=== PATIENT | female | born 1980 | race Caucasian/White ===

== ENCOUNTER 2017-08-29 13:54 | Inpatient (IN) | payer MEDICARE ==
[2017-08-29] MEDS ORDERED: ASPIRIN 81 MG TABLET, CHEWABLE PO ONE (13:59)
[2017-08-29] MEDS ORDERED: LORAZEPAM INJ 2 MG/1 ML VIAL IV ONE (14:34)
--- NOTE | 2017-08-29 14:34 | RADIOLOGY REPORT (SQ) ---
EXAM DESCRIPTION: CHEST SINGLE VIEW COMPLETED DATE/TIME: 08/29/2017 2:26 pm REASON FOR STUDY: cp COMPARISON: None. EXAM PARAMETERS: NUMBER OF VIEWS: One view. TECHNIQUE: Single frontal radiographic view of the chest acquired. RADIATION DOSE: NA LIMITATIONS: None. FINDINGS: LUNGS AND PLEURA: No opacities, masses or pneumothorax. No pleural effusion. MEDIASTINUM AND HILAR STRUCTURES: No masses. Contour normal. HEART AND VASCULAR STRUCTURES: Heart normal in size. Normal vasculature. BONES: No acute findings. HARDWARE: Prior anterior median sternotomy and valvular replacement. OTHER: No other significant finding. IMPRESSION: NO ACUTE RADIOGRAPHIC FINDING IN THE CHEST. TECHNICAL DOCUMENTATION: JOB ID: [id number] [employer]- All Rights Reserved Reading location - IP/workstation name: [email or web address]
[2017-08-29 15:28] LABS: ABSOLUTE LYMPHOCYTES (AUTO) 1.3 10^3/uL (0.5-4.7); ABSOLUTE NEUT (AUTO) 12.4 10^3/uL (1.7-8.2); BASOPHILS % (AUTO) 0.3 % (0-2); EOSINOPHILS % (AUTO) 0.1 % (0-6); HEMATOCRIT 41.7 % (36.0-47.0); HEMOGLOBIN 13.9 g/dL (12.0-15.5); LYMPHOCYTES % (AUTO) 8.8 % (13-45); MEAN CORPUSCULAR HEMOGLOBIN 28.9 pg (27.0-33.4); MEAN CORPUSCULAR HGB CONC 33.2 g/dL (32.0-36.0); MEAN CORPUSCULAR VOLUME 87 fl (80-97); PLATELET COUNT 429 10^3/uL (150-450); SEGMENTED NEUTROPHILS % (AUTO) 83.8 % (42-78); TOTAL CELLS COUNTED % (AUTO) 100 %; WHITE BLOOD COUNT 14.7 10^3/uL (4.0-10.5)
--- NOTE | 2017-08-29 15:35 | EKG REPORT ---
SEVERITY:- ABNORMAL ECG - VENTRICULAR PREMATURE COMPLEX NONSPECIFIC INTRAVENTRICULAR CONDUCTION DELAY ST DEPRESSION, CONSIDER ISCHEMIA, DIFFUSE LDS SINUS TACHYCARDIA VERSUS SVT.BASELINE ARTIFACT REPEAT EKG. : Confirmed by: Jojo Cooper MD 29-Aug-2017 15:35:09
[2017-08-29 15:43] LABS: PARTIAL THROMBOPLASTIN TIME 113.5 SEC (23.5-35.8)
[2017-08-29 15:51] LABS: ALANINE AMINOTRANSFERASE 18 U/L (9-52); ALKALINE PHOSPHATASE 96 U/L (38-126); ANION GAP 19 (5-19); ASPARTATE AMINO TRANSFERASE 40 U/L (14-36); BILIRUBIN,DIRECT 0.4 mg/dL (0.0-0.4); BILIRUBIN,TOTAL 0.8 mg/dL (0.2-1.3); BLOOD UREA NITROGEN 14 mg/dL (7-20); CALCIUM 10.8 mg/dL (8.4-10.2); CARBON DIOXIDE 25 mmol/L (22-30); CHLORIDE 104 mmol/L (98-107); CREATINE KINASE 916 U/L (30-135); GLUCOSE 86 mg/dL (75-110); POTASSIUM 4.6 mmol/L (3.6-5.0); SODIUM 147.6 mmol/L (137-145); TOTAL PROTEIN 8.3 g/dL (6.3-8.2)
[2017-08-29 16:10] LABS: CREATINE KINASE MB 4.34 ng/mL (<4.55); TROPONIN I < 0.012 ng/mL
--- NOTE | 2017-08-29 16:18 | ER Document Report ---
ED General - General Chief Complaint: Chest Pain Stated Complaint: ALTERED MENTAL STATUS Time Seen by Provider: 08/29/17 14:26 Mode of Arrival: Medic Information source: Relative Cannot obtain history due to: Altered mental status Notes: 36-year-old female with history of CVA, OH, hemiplegia, IV drug abuse presents via EMS from home after her sister who is at the bedside reports that the patient has had a change in mental status. Per the sister the patient was in a nursing facility and [place]. She states that she did not feel that the patient sylvia receiving adequate care and elected to bring her home to [place] to care for her. She states that until 3 days ago she has been otherwise well. Sister reports that the patient can usually speak and communicate although limited. She states that 3 days ago she became less verbal , appeared uncomfortable and was holding her head. Until this morning patient was still able to verbalize her wishes which were initially to not come to the emergency department. Upon arrival patient is diaphoretic, nonverbal. Patient has provided paperwork from the retirement facility in [place] which included a DNR status which was signed by the patient. - Related Data Allergies/Adverse Reactions: cyclobenzaprine [From Flexeril] Allergy (Verified 08/29/17 14:12) oxcarbazepine [From Trileptal] Allergy (Verified 08/29/17 14:12) tramadol [From Ultram] Allergy (Verified 08/29/17 14:12) Past Medical History - General Information source: Relative, Outside Facility Records Cannot obtain history due to: Altered mental status - Social History Smoking Status: Unknown if Ever Smoked Drug Abuse: Heroin Lives with: Family Family History: Reviewed & Not Pertinent Patient has suicidal ideation: No Patient has homicidal ideation: No - Past Medical History Cardiac Medical History: Reports: Hx Congestive Heart Failure, Hx Heart Attack Pulmonary Medical History: Reports: Hx COPD Renal/ Medical History: Denies: Hx Peritoneal Dialysis GI Medical History: Reports: Hx Gastroesophageal Reflux Disease Psychiatric Medical History: Reports: Hx Depression Past Surgical History: Reports: Hx Cardiac Surgery Review of Systems - Review of Systems -: Yes ROS unobtainable due to patient's medical condition Physical Exam - Vital signs Vitals: Resp Pulse Ox 24 H 96 08/29/17 14:09 08/29/17 14:09 - Notes Notes: PHYSICAL EXAMINATION: GENERAL: Diaphoretic, ill-appearing, nonverbal HEAD: Atraumatic, normocephalic. EYES: Bilateral dilated pupils with fixed downward gaze. ENT: Nares patent, oropharynx clear without exudates. Moist mucous membranes. NECK: Normal range of motion, supple without lymphadenopathy LUNGS: Breath sounds clear to auscultation bilaterally and equal. No wheezes rales or rhonchi. HEART: Tachycardic, no murmurs ABDOMEN: Soft, nontender, nondistended abdomen. No guarding, no rebound. No masses appreciated. Female : deferred Musculoskeletal: Left upper extremity and left lower extremity contractures NEUROLOGICAL: Nonverbal, GCS-5 SKIN: Diaphoretic. Surgical scar of chest clean dry and intact Course - Re-evaluation Re-evalutation: Laboratory 08/29/17 08/29/17 08/29/17 14:58 14:58 14:58 WBC 14.7 H RBC 4.80 Hgb 13.9 Hct 41.7 MCV 87 MCH 28.9 MCHC 33.2 RDW 14.0 Plt Count 429 Seg Neutrophils % 83.8 H Lymphocytes % 8.8 L Monocytes % 7.0 Eosinophils % 0.1 Basophils % 0.3 Absolute Neutrophils 12.4 H Absolute Lymphocytes 1.3 Absolute Monocytes 1.0 Absolute Eosinophils 0.0 Absolute Basophils 0.0 PT INR APTT Sodium 147.6 H Potassium 4.6 Chloride 104 Carbon Dioxide 25 Anion Gap 19 BUN 14 Creatinine 0.59 Est GFR ( Amer) > 60 Est GFR (Non-Af Amer) > 60 Glucose 86 Calcium 10.8 H Total Bilirubin 0.8 Direct Bilirubin 0.4 Neonat Total Bilirubin Not Reportable Neonat Direct Bilirubin Not Reportable Neonat Indirect Bili Not Reportable AST 40 H ALT 18 Alkaline Phosphatase 96 Creatine Kinase 916 H CK-MB (CK-2) 4.34 Troponin I < 0.012 Total Protein 8.3 H Albumin 5.0 08/29/17 14:58 WBC RBC Hgb Hct MCV MCH MCHC RDW Plt Count Seg Neutrophils % Lymphocytes % Monocytes % Eosinophils % Basophils % Absolute Neutrophils Absolute Lymphocytes Absolute Monocytes Absolute Eosinophils Absolute Basophils PT 66.9 H* INR 7.49 H* APTT 113.5 H Sodium Potassium Chloride Carbon Dioxide Anion Gap BUN Creatinine Est GFR ( Amer) Est GFR (Non-Af Amer) Glucose Calcium Total Bilirubin Direct Bilirubin Neonat Total Bilirubin Neonat Direct Bilirubin Neonat Indirect Bili AST ALT Alkaline Phosphatase Creatine Kinase CK-MB (CK-2) Troponin I Total Protein Albumin Chest X-Ray 08/29/17 13:59 IMPRESSION: NO ACUTE RADIOGRAPHIC FINDING IN THE CHEST. Head CT 08/29/17 14:36 IMPRESSION: Diffuse bilateral hemispheric subdural acute hemorrhages, acute falx and tentorial subdural hemorrhage, acute right posterior fossa subdural hemorrhage. Although there is no midline shift, there is mass effect, with effacement of basilar cisterns and mild inferior protrusion of the cerebellar tonsils through the foramen magnum. EVIDENCE OF ACUTE STROKE: NO. 36-year-old female with history of CVA, OH, hemiplegia, IV drug abuse presents via EMS from home after her sister who is at the bedside reports that the patient has had a change in mental status. Per the sister the patient was in a nursing facility and [place]. She states that she did not feel that the patient sylvia receiving adequate care and elected to bring her home to [place] to care for her. She states that until 3 days ago she has been otherwise well. Sister reports that the patient can usually speak and communicate although limited. She states that 3 days ago she became less verbal , appeared uncomfortable and was holding her head. Until this morning patient was still able to verbalize her wishes which were initially to not come to the emergency department. Upon arrival patient is diaphoretic, nonverbal. Patient has provided paperwork from the retirement facility in [place] which included a DNR status which was signed by the patient upon arrival vitals were reviewed. Upon arrival vital signs reviewed. Patient is markedly tachycardic with a heart rate of 150. She is diaphoretic, unresponsive. Patient was given morphine and Ativan and blood pressure normalized and diaphoresis resolved. CT of the head was significant for diffuse bilateral acute subdural hemorrhages with mass-effect. Patient's INR is 7.49. IV vitamin K was administered. 08/29/17 17:11 I spoke to David CANDELARIO for Dr. Crane at [facility] regarding the patient, her CT findings and her DNR status. No surgical recommendations at this time. Suggest comfort care. I did speak to the sister who is at the bedside who provided us with the patient's DNR and made her aware that the patient is not a surgical candidate at this time. Patient sister is in agreement. She states that she recently talked to her sister regarding her DNR and this was the patient's wishes just recently. Spoke to our hospitalist who agrees to admission, for comfort care. 08/30/17 00:49 08/30/17 00:50 - Vital Signs Vital signs: Temp Pulse Resp BP Pulse Ox 23 H 122/75 95 08/29/17 19:01 08/29/17 19:01 08/29/17 18:01 - Laboratory Result Diagrams: 08/29/17 14:58 08/29/17 14:58 Laboratory results interpreted by me: 08/29/17 08/29/17 08/29/17 14:58 14:58 14:58 WBC 14.7 H Seg Neutrophils % 83.8 H Lymphocytes % 8.8 L Absolute Neutrophils 12.4 H PT 66.9 H* INR 7.49 H* APTT 113.5 H Sodium 147.6 H Calcium 10.8 H AST 40 H Creatine Kinase 916 H Total Protein 8.3 H - Diagnostic Test Radiology reviewed: Image reviewed, Reports reviewed Critical Care Note - Critical Care Note Total time excluding time spent on procedures (mins): 45 - minutes of critical care time spent in direct contact evaluating and reevaluating the patient, treating symptoms, reviewing labs and studies and speaking with family and consultants excluding any procedures Discharge - Discharge Clinical Impression: Subdural bleeding Condition: Critical Disposition: ADMITTED INPATIENT Admitting Provider: Hospitalist Unit Admitted: Medical Floor
--- NOTE | 2017-08-29 16:33 | RADIOLOGY REPORT (SQ) ---
EXAM DESCRIPTION: CT HEAD WITHOUT COMPLETED DATE/TIME: 08/29/2017 4:17 pm REASON FOR STUDY: ams COMPARISON: None. TECHNIQUE: Axial images acquired through the brain without intravenous contrast. Images reviewed wi th bone, brain and subdural windows. Additional sagittal and coronal reconstructions were generated. Images stored on PACS. All CT scanners at this facility use dose modulation, iterative reconstruction, and/or weight based d osing when appropriate to reduce radiation dose to as low as reasonably achievable (ALARA). [facility]: Dose Right [facility]: CareDose [facility]: Dose Right [facility]: Teradose 4D [facility]: [employer] Technologies RADIATION DOSE: CT Rad equipment meets quality standard of care and radiation dose reduction techniq ues were employed. CTDIvol: 53.2 mGy. DLP: 1981 mGy-cm. mGy. LIMITATIONS: Motion artifact, patient scanned twice FINDINGS: Acute subdural hemorrhages are present diffusely. A right-sided hemispheric acute subdural hemorrhage is present over the frontal parietal temporal and occipital regions, 11 mm in greatest thickness high over the frontal parietal convexity. A left-sided hemispheric acute subdural hemorrhage is present over the frontal parietal temporal and occipital regions, 13 to 14 mm in greatest thickness over the left frontoparietal convexity. There is an acute subdural hemorrhage along the falx high over the convexities measuring 4 mm in thic kness. Acute subdural hemorrhage is present along the tentorium, right tentorial hemorrhage is 4 mm in thick ness, left is 9 mm in thickness. Subdural hemorrhage is also seen in the posterior fossa on the right, posterolaterally. Hemorrhage m easures 12 mm in thickness on the coronal reconstructions. Although there is no midline shift, there is significant mass effect, with effacement of the basilar cisterns around the brainstem, and inferior protrusion of the cerebellar tonsils through the foramen magnum. No hydrocephalus. No gross CT evidence of acute parenchymal large territory ischemic change or parenchymal/intraventric ular hemorrhage. Calvarium, paranasal sinuses, mastoid air cells unremarkable. Orbits unremarkable. This report was discussed with Dr. Woods, 1610 hours 08/29/2017 as a critical result. IMPRESSION: Diffuse bilateral hemispheric subdural acute hemorrhages, acute falx and tentorial subdu ral hemorrhage, acute right posterior fossa subdural hemorrhage. Although there is no midline shift, there is mass effect, with effacement of basilar cisterns and mil d inferior protrusion of the cerebellar tonsils through the foramen magnum. EVIDENCE OF ACUTE STROKE: NO. COMMENT: Pertinent findings on the imaging study reported as a CRITICAL RESULT to LUIS ALFREDO Christianson t16:10 on 08/29/2017. Category of Critical Result: Acute intracranial hemorrhage with mass effect Quality ID # [id number]: Final reports with documentation of one or more dose reduction techniques (e.g., Au tomated exposure control, adjustment of the mA and/or kV according to patient size, use of iterative reconstruction technique) TECHNICAL DOCUMENTATION: JOB ID: [id number] [employer]- All Rights Reserved Reading location - IP/workstation name: [email or web address]
[2017-08-29 16:35] LABS: INTERNATIONAL RATION (INR) 7.49
[2017-08-29 16:36] LABS: PROTHROMBIN TIME 66.9 SEC (11.4-15.4)
[2017-08-29] MEDS ORDERED: PHYTONADIONE INJ 10 MG/1 ML AMPULE IV ONE (17:54)
[2017-08-29] MEDS ORDERED: PROMETHAZINE HCL 25 MG SUPP.RECT PR PRN (18:05)
[2017-08-29] MEDS ORDERED: DEXTROSE 40% GEL 15 GM TUBE PO PRN ×2 (18:05)
[2017-08-29] MEDS ORDERED: GLUCAGON,HUMAN RECOMB 1 MG INJ SUBCUT PRN (18:05)
[2017-08-29] MEDS ORDERED: DEXTROSE 50%-WATER 25 GM/50 ML DISP.SYRIN IV PRN ×2 (18:05)
[2017-08-29] MEDS ORDERED: ACETAMINOPHEN 650 MG SUPP.RECT PR PRN (18:05)
[2017-08-29] MEDS ORDERED: ONDANSETRON HCL INJ/PF 4 MG/2 ML SDV IV PRN (18:05)
[2017-08-29] MEDS ORDERED: FENTANYL CITRATE INJ/PF 100 MCG/2 ML AMPUL IV PRN (18:11)
[2017-08-29] MEDS ORDERED: SCOPOLAMINE HYDROBROMIDE 1.5 MG PATCH.TD72 TD ONE (19:00)
--- NOTE | 2017-08-29 19:29 | PDOC H&P ---
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 Patient was residing in a [place] until recently. Her sister at the bedside felt that she was not receiving adequate care there and elected to bring her home, here in [place]. Sister states that Tuesday night she was no feeling well, and was not eatting her food. At a baseline she had limited verbal ability and was highly dependent on outside care. On Tuesday night patient became unconsious and has not regained consciousness. She displays some reactive motor capability in her right upper extremity. Has bilateral dilated pupils with fixed downward gaze. Her CT head shows an acute 13mm subdural hematoma without current midline shifting. Her INR was 7.49. Sister at the bedside does not describe any recent falls or head trauma. ER initially discussed transfer to [facility] for subdural hematoma, but they recommended against intervention and recommended comfort care. Family at the bedside agreed to comfort care. Patient will be admitted to medicine for comfort care support. Past Medical History Cardiac Medical History: Reports: Congestive Heart Failure, Myocardial Infarction Pulmonary Medical History: Reports: Chronic Obstructive Pulmonary Disease (COPD) Neurological Medical History: Reports: Ischemic CVA GI Medical History: Reports: Gastroesophageal Reflux Disease Psychiatric Medical History: Reports: Depression Hematology History Note: VTE history Social History Smoking Status: Current Every Day Smoker Cigarettes Packs Per Day: 2 - smoking since age 10 Frequency of Alcohol Use: None Amount of Alcoholic Beverages Per Day: unknown historic alcohol amount, described as heavy drinker prior to stroke Hx Recreational Drug Use: Yes - hx of Heroin and pill opiates described Drugs: Heroin Hx Prescription Drug Abuse: Yes Family History Family History: CAD Family History: Father described with having Cancer secondary to [place]. Mother had heart disease. Parental Family History Reviewed: Yes Children Family History Reviewed: No Sibling(s) Family History Reviewed.: No Medication/Allergy Allergies/Adverse Reactions: cyclobenzaprine [From Flexeril] Allergy (Verified 08/29/17 14:12) oxcarbazepine [From Trileptal] Allergy (Verified 08/29/17 14:12) tramadol [From Ultram] Allergy (Verified 08/29/17 14:12) Review of Systems Review of Systems: Unable to obtain ROS from patient due to her altered mental status Physical Exam Vital Signs: Temp Pulse Resp BP Pulse Ox 17 119/87 H 95 08/29/17 18:01 08/29/17 18:01 08/29/17 18:01 General appearance: PRESENT: severe distress, other - no meaningful responsiveness. Head exam: PRESENT: atraumatic, normocephalic Eye exam: PRESENT: other - bilateral dialated pupils with downward gaze, not responsive to light on exam. Ear exam: PRESENT: normal external ear exam. ABSENT: bleeding Mouth exam: PRESENT: moist, neck supple Throat exam: ABSENT: post pharyngeal erythema, tonsillar exudate Neck exam: PRESENT: full ROM. ABSENT: JVD, thyromegaly Respiratory exam: ABSENT: accessory muscle use, rales, rhonchi, wheezes Cardiovascular exam: PRESENT: RRR, +S1, +S2 Pulses: PRESENT: normal radial pulses, normal dorsalis pedis pul Vascular exam: PRESENT: normal capillary refill. ABSENT: pallor GI/Abdominal exam: PRESENT: normal bowel sounds, soft. ABSENT: rigid Extremities exam: ABSENT: calf tenderness, joint swelling Musculoskeletal exam: PRESENT: full ROM. ABSENT: deformity Neurological exam: PRESENT: altered. ABSENT: CN II-XII grossly intact Psychiatric exam: PRESENT: other - patient has no meaningful responses. ABSENT : agitated, anxious Focused psych exam: ABSENT: catatonic, paranoid Skin exam: PRESENT: normal color. ABSENT: dry, mottled, warm Results Impressions: Chest X-Ray 08/29/17 13:59 IMPRESSION: NO ACUTE RADIOGRAPHIC FINDING IN THE CHEST. Head CT 08/29/17 14:36 IMPRESSION: Diffuse bilateral hemispheric subdural acute hemorrhages, acute falx and tentorial subdural hemorrhage, acute right posterior fossa subdural hemorrhage. Although there is no midline shift, there is mass effect, with effacement of basilar cisterns and mild inferior protrusion of the cerebellar tonsils through the foramen magnum. EVIDENCE OF ACUTE STROKE: NO. Assessment & Plan - Diagnosis (1) Need for comfort care Is this a current diagnosis for this admission?: Yes Plan: sister at the bedside validates her DNR status, which was also confirmed on records obtained from the [place]. Giving scopolamine patch, and prn Fentanyl and prn Dilaudid for comfort. Will supply supportive comfort care for this patient. prn anti-emetics. Discharge planning consulted for possible Hospice. (2) Subdural bleeding Is this a current diagnosis for this admission?: Yes Plan: Acute subdural hematoma on CT head, in setting of hemiplegia and bed bound status. Jass Sandy was contacted and declined any intervention in this setting and recommended comfort care. Family at bedside agreed to comfort care. (3) History of CVA (cerebrovascular accident) Is this a current diagnosis for this admission?: Yes Plan: history of CVA with left sided hemiplegia. lower extemity contracture and left upper extremity contracture. (4) Supratherapeutic INR Is this a current diagnosis for this admission?: Yes Plan: Giving 10mg IV vitamin K in ED. INR was approx 7.5. Will monitor INR recovery. - Inpatient Certification Based on my medical assessment, after consideration of the patient's comorbidities, presenting symptoms, or acuity I expect that the services needed warrant INPATIENT care.: Yes Medical Necessity: Significant Comorbidiites Make Outpatient Treatment Too Risky - Plan Summary Plan Summary: comfort care desired by family members
[2017-08-30] MEDS: HYDROMORPHONE HCL INJ/PF 2 MG/ML AMPULE IV PRN ×2 (01:00→09:23)
[2017-08-30 06:40] LABS: HEMATOCRIT 36.8 % (36.0-47.0); HEMOGLOBIN 12.5 g/dL (12.0-15.5); MEAN CORPUSCULAR HEMOGLOBIN 29.5 pg (27.0-33.4); MEAN CORPUSCULAR HGB CONC 34.1 g/dL (32.0-36.0); MEAN CORPUSCULAR VOLUME 87 fl (80-97); PLATELET COUNT 292 10^3/uL (150-450); RED BLOOD COUNT 4.25 10^6/uL (3.72-5.28); RED CELL DISTRIBUTION WIDTH 14.1 % (11.5-14.0); WHITE BLOOD COUNT 7.9 10^3/uL (4.0-10.5)
[2017-08-30 07:13] LABS: ALBUMIN 4.4 g/dL (3.5-5.0); ANION GAP 15 (5-19); BLOOD UREA NITROGEN 16 mg/dL (7-20); CALCIUM 9.7 mg/dL (8.4-10.2); CARBON DIOXIDE 23 mmol/L (22-30); CHLORIDE 107 mmol/L (98-107); GLUCOSE 60 mg/dL (75-110); PHOSPHORUS 4.5 mg/dL (2.5-4.5); SODIUM 145.1 mmol/L (137-145)
[2017-08-30 07:19] LABS: INTERNATIONAL RATION (INR) 1.18
[2017-08-30 07:21] LABS: PROTHROMBIN TIME 15.7 SEC (11.4-15.4)
--- NOTE | 2017-08-30 10:36 | Physician Advisory Note ---
Physician Advisor ProgressNote .: Pursuant to the plan for [facility], I have reviewed the medical record for this patient. Physician Advisor Statement: Please consider documenting, if you agree: 1. "Brain compression" from subdural bleed 2. "COMA" (w/GCS total 5 on arrival) from same 3. "Acute hypernatremia due to " (dehydration, from progressive metabolic encephalopathy from subdural hematoma/brain compression?) Status: hemiplegic pt w/past substance abuse/dependence involving opioid pills/ heroin/EtOH/tobacco, in w/subdural bleeding/brain compression/coma, needing comfort care including PRN IV opioids for pain control - already needing this 2x in 10 hrs & expected to continue to need this frequently for adequate comfort at this point. Appropriately made comfort care. Medicare pt, has needed hospital x 1MN so far. - Unless attending has been expecting pt to go to hospice ctr or home hospice today (which doesn't appear to be the case), she is appropriate for Inpt status. Thanks! CK
--- NOTE | 2017-08-31 00:07 | PDOC PROGRESS REPORT ---
Subjective Progress Note for:: 08/30/17 Subjective:: 36 yo with subdural hematoma and poor prior functional status due to CVAs with IVDU hx. She is comfort care. Family is deciding on hospice options. project planner to assist in this. Mother has power of assistant prosecuting attorney. Reason For Visit: SUBDURAL HEMATOMA/COMFORT CARE Physical Exam Vital Signs: Temp Pulse Resp BP Pulse Ox 75 18 122/75 96 08/30/17 17:21 08/30/17 17:21 08/29/17 19:01 08/30/17 17:21 General appearance: PRESENT: other - able to squeeze her right hand today Head exam: PRESENT: normocephalic Eye exam: ABSENT: conjunctival injection, scleral icterus Ear exam: PRESENT: normal external ear exam. ABSENT: drainage Mouth exam: PRESENT: moist, neck supple Throat exam: ABSENT: post pharyngeal erythema, tonsillar exudate Neck exam: PRESENT: full ROM. ABSENT: tenderness Respiratory exam: ABSENT: rales, rhonchi, wheezes Cardiovascular exam: PRESENT: RRR, +S1, +S2 Pulses: PRESENT: normal radial pulses, normal dorsalis pedis pul GI/Abdominal exam: PRESENT: normal bowel sounds, soft. ABSENT: rigid Extremities exam: ABSENT: joint swelling, pedal edema Musculoskeletal exam: PRESENT: full ROM. ABSENT: ambulatory Neurological exam: PRESENT: altered. ABSENT: alert Psychiatric exam: ABSENT: agitated, anxious Focused psych exam: ABSENT: paranoid, restlessness Skin exam: PRESENT: normal color. ABSENT: mottled Results Laboratory Results: 08/30/17 05:46 08/30/17 05:46 08/30/17 08/30/17 05:46 05:46 WBC 7.9 RBC 4.25 Hgb 12.5 Hct 36.8 MCV 87 MCH 29.5 MCHC 34.1 RDW 14.1 H Plt Count 292 Sodium 145.1 H Potassium 4.0 Chloride 107 Carbon Dioxide 23 Anion Gap 15 BUN 16 Creatinine 0.49 L Est GFR ( Amer) > 60 Est GFR (Non-Af Amer) > 60 Glucose 60 L Calcium 9.7 Phosphorus 4.5 Albumin 4.4 08/29/17 19:03 Troponin I < 0.012 Impressions: Chest X-Ray 08/29/17 13:59 IMPRESSION: NO ACUTE RADIOGRAPHIC FINDING IN THE CHEST. Head CT 08/29/17 14:36 IMPRESSION: Diffuse bilateral hemispheric subdural acute hemorrhages, acute falx and tentorial subdural hemorrhage, acute right posterior fossa subdural hemorrhage. Although there is no midline shift, there is mass effect, with effacement of basilar cisterns and mild inferior protrusion of the cerebellar tonsils through the foramen magnum. EVIDENCE OF ACUTE STROKE: NO. Assessment & Plan - Diagnosis (1) Need for comfort care Is this a current diagnosis for this admission?: Yes Plan: mother and sister are in agreement for comfort care. currently deciding a hospice facilty, possibly in [place] near the mother. mother has POA prn pain medications, scopolamine d/c planning is assisting. (2) Subdural bleeding Is this a current diagnosis for this admission?: Yes Plan: Jass Sandy turned her down for any possible intervention, given her poor prior baseline. Comfort care (3) History of CVA (cerebrovascular accident) Is this a current diagnosis for this admission?: Yes Plan: hx of CVAs with left hemiplegia, and contractures in lower extremities. (4) Supratherapeutic INR Is this a current diagnosis for this admission?: Yes Plan: was given a Vitamin K injection on arrival. - Time Time Spent with patient: 15-24 minutes - Inpatient Certification I certify that my determination is in accordance with my understanding of Medicare's requirements for reasonable and necessary INPATIENT services [42 CFR 412.3e].: Yes Medical Necessity: Need Close Monitoring Due to Risk of Patient Decompensation
[2017-08-31] MEDS: HYDROMORPHONE HCL INJ/PF 2 MG/ML AMPULE IV PRN ×4 (07:45→19:47)
[2017-08-31 08:52] VITALS: BP 118/56
--- NOTE | 2017-08-31 14:23 | PDOC TRANSFER SUMMARY ---
General - Admit/Disc Date/PCP Admission Date/Primary Care Provider: 08/29/17 18:02 Discharge Date: 08/31/17 - Discharge Diagnosis (1) History of CVA (cerebrovascular accident) Is this a current diagnosis for this admission?: Yes (2) Need for comfort care Is this a current diagnosis for this admission?: Yes (3) Subdural bleeding Is this a current diagnosis for this admission?: Yes (4) Supratherapeutic INR Is this a current diagnosis for this admission?: Yes - Additional Information Resuscitation Status: Do Not Resuscitate Home Medications: Atorvastatin Calcium [Lipitor 20 mg Tablet] 20 mg PO DAILY 08/30/17 Baclofen [Baclofen 10 mg Tablet] 10 mg PO Q6HP PRN 08/30/17 Clonazepam [Klonopin 1 mg Tablet] 1 mg PO Q12 08/30/17 Dextromethorphan HBr/Quinidine [Nuedexta 20-10 mg Capsule] 1 cap PO Q12 Duloxetine HCl [Cymbalta] 60 mg PO DAILY 08/30/17 Midodrine HCl 10 mg PO Q8 08/30/17 Pantoprazole Sodium [Protonix] 40 mg PO DAILY 08/30/17 Pregabalin [Lyrica 100 Mg Capsule] 100 mg PO Q8 08/30/17 Warfarin Sodium [Coumadin 5 mg Tablet] 5 mg PO DAILY 08/30/17 History of Present Illness Admission Date/PCP: 08/29/17 18:02 History of Present Illness: Patient admitted after presentation as in the following HPI : "GRAHAM ZAIDI is a 36 year old female with a PMH of CVA with left sided hemiplegia and bedbound, hx of IVDU, hx of AK, Tobacco abuse, HLD, 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 Patient was residing in a [place] [facility] until recently. Her sister at the bedside felt that she was not receiving adequate care there and elected to bring her home, here in [place]. Sister states that Tuesday night she was no feeling well, and was not eatting her food. At a baseline she had limited verbal ability and was highly dependent on outside care. On Tuesday night patient became unconsious and has not regained consciousness. She displays some reactive motor capability in her right upper extremity. Has bilateral dilated pupils with fixed downward gaze. Her CT head shows an acute 13mm subdural hematoma without current midline shifting. Her INR was 7.49. Sister at the bedside does not describe any recent falls or head trauma. ER initially discussed transfer to [facility] for subdural hematoma, but they recommended against intervention and recommended comfort care. Family at the bedside agreed to comfort care. Patient will be admitted to medicine for comfort care support." Hospital Course Hospital Course: Patient was admitted to hospitalist service. She was DNR and sister who was at bedside confirmed her DNR status. She was treated with vitamin K 10 mg IV for INR of 7.5. She was also given scopolamine patch, and prn Fentanyl and prn Dilaudid for comfort. Because of poor prognosis, family decided on comfort care. Her Coumadin has been stopped; patient with history of DVT and it appears she also has a mechanical valve. I spoke with her mother, Becca, over the phone and she supported the patient's comfort care status. Patient is now being transferred to inpatient hospice. When I saw her today, she appears comfortable, opens her eyes, and very minimally followed commands. Her mother wishes for her to be transferred closer to home in [place] if she happens to improve and able to ride with family. I recommend continuing comfort measures, pain management, pleasure feeds for now and advancing diet as tolerated. Family understands that we are stopping Coumadin and all anticoagulations/antiplatelets and they are in agreement. They also understand that this may predispose patient to having further ischemic stroke. They reiterated their desire for comfort care for the patient. Physical Exam Vital Signs: Temp Pulse Resp BP Pulse Ox 98.4 F 88 12 118/56 L 96 08/31/17 08:12 08/31/17 08:12 08/31/17 08:12 08/31/17 08:12 08/31/17 08:12 GEN: NAD, well-developed, well-nourished CV: RRR, NL S1S2 LUNGS: CTA bilaterally ABDOMEN Soft, NT, +BS EXTERMITIES: No e/c/c, left hand contracture NEURO: Awake, minimally following commands Results Laboratory Results: 08/30/17 05:46 08/30/17 05:46 08/29/17 19:03 Troponin I < 0.012 Impressions: Chest X-Ray 08/29/17 13:59 IMPRESSION: NO ACUTE RADIOGRAPHIC FINDING IN THE CHEST. Head CT 08/29/17 14:36 IMPRESSION: Diffuse bilateral hemispheric subdural acute hemorrhages, acute falx and tentorial subdural hemorrhage, acute right posterior fossa subdural hemorrhage. Although there is no midline shift, there is mass effect, with effacement of basilar cisterns and mild inferior protrusion of the cerebellar tonsils through the foramen magnum. EVIDENCE OF ACUTE STROKE: NO. Transfer Plan - Time Spent with Patient Time spent with patient: Greater than 30 Minutes Qualifiers - * PATIENT BEING DISCHARGED WITH ANY OF THE FOLLOWING DIAGNOSIS: Stroke VTE patient discharged on overlapping Therapy?: No Stroke Pt being discharged on Anti-thrombolytic therapy?: No Reason(s) for not prescribing Anti-thrombolytic therapy:: Medical Contraindication - Subdural hematoma Stroke Pt being discharged on Anti-coagulation therapy?: No Reason(s) for not prescribing Anti-coagulation therapy:: Medical Contraindication - Subdural hematoma Stroke Pt being discharged on Statins?: No Reason(s) for not prescribing Statins therapy:: Medical Contraindication
[2017-09-01] MEDS ORDERED: SCOPOLAMINE HYDROBROMIDE 1.5 MG PATCH.TD72 TD SCH (10:00)
== END 2017-08-31 19:51 | disposition hospice, inpatient (51) | DRG 64 ==
LOC: ER 13:54 → EH 18:02 → 2N 19:38
PROVIDERS: ADMIT Internal Medicine; ATTEND Internal Medicine
DX: I62.00 Nontraumatic subdural hemorrhage, unspecified (principal); G93.5 Compression of brain; I69.354 Hemiplegia and hemiparesis following cerebral infarction affecting left non-dominant side; R79.1 Abnormal coagulation profile; Z51.5 Encounter for palliative care; Z66 Do not resuscitate; E78.00 Pure hypercholesterolemia, unspecified; K21.9 Gastro-esophageal reflux disease without esophagitis; I50.9 Heart failure, unspecified; F32.9 Major depressive disorder, single episode, unspecified; J44.9 Chronic obstructive pulmonary disease, unspecified; F17.210 Nicotine dependence, cigarettes, uncomplicated; I25.2 Old myocardial infarction; Z57.5 Occupational exposure to toxic agents in other industries; Z88.6 Allergy status to analgesic agent; Z79.899 Other long term (current) drug therapy; Z88.8 Allergy status to other drugs, medicaments and biological substances; Z79.01 Long term (current) use of anticoagulants; Z74.01 Bed confinement status; Z86.718 Personal history of other venous thrombosis and embolism; Z95.2 Presence of prosthetic heart valve; Z82.49 Family history of ischemic heart disease and other diseases of the circulatory system; Z82.61 Family history of arthritis; Z80.9 Family history of malignant neoplasm, unspecified
CPT/HCPCS: 36415; 70450; 71045; 80053; 80069; 82550; 82553; 84484; 85025; 85027; 85610; 85730; 93005; 93010; 96374; 99291; J1170; J2060; J3430